=== PATIENT | male | born 1995 | race Caucasian/White ===

== ENCOUNTER 2025-05-12 07:04 | Outpatient (RCR) | payer BC, SELFPAY | END 2025-07-04 11:36 | disposition home or self-care (01) | LOC: HO.PTS 07:04 | PROVIDERS: PCP Internal Medicine; Visit Provider Orthopaedic Surgery | DX: M77.8 Other enthesopathies, not elsewhere classified (principal) | CPT/HCPCS: 97035; 97110; 97140; 97161 ==